=== PATIENT | male | born 1965 | race African-American/Black ===

== ENCOUNTER 2018-06-06 09:23 | Emergency (ER) | payer BC ==
--- NOTE | 2018-06-06 10:16 | EDPHYS ---
Physician Documentation [facility] Name: Shahab Avila Age: 52 yrs Sex: Male : 1965 Arrival Date: 06/06/2018 Time: 09:25 Bed 18 Private MD: None, None ED Physician Evelio Au HPI: 06/06 10:29 This 52 yrs old Black Male presents to ER via Ambulatory with complaints of Foot Pain. snw 10:29 The patient presents with pain, that is acute. The complaints affect the right foot and snw right first toe and ball of right foot and right lateral malleolus. Context: The problem was sustained at home, resulted from accidentally kicked bedframe . Onset: The symptoms/episode began/occurred last week. Treatment prior to arrival includes: tylenol. Severity of symptoms: At their worst the symptoms were mild, moderate. It is unknown whether or not the patient has had similar symptoms in the past. The patient has not recently seen a physician. Historical: - Allergies: 09:49 No Known Allergies; ss - PMHx: 09:49 Hypertension; Gout; ss - PSHx: 09:49 None; ss - Immunization history:: Adult Immunizations up to date. - Social history:: Smoking status: Patient/guardian denies using tobacco. - Ebola Screening: : Patient denies exposure to infectious person Patient denies travel to an Ebola-affected area in the 21 days before illness onset. ROS: 10:27 Constitutional: Negative for fever, chills, and weight loss, Eyes: Negative for injury, snw pain, redness, and discharge, ENT: Negative for injury, pain, and discharge, Neck: Negative for injury, pain, and swelling, Cardiovascular: Negative for chest pain, palpitations, and edema, Respiratory: Negative for shortness of breath, cough, wheezing, and pleuritic chest pain, Abdomen/GI: Negative for abdominal pain, nausea, vomiting, diarrhea, and constipation, Back: Negative for injury and pain, : Negative for injury, bleeding, discharge, and swelling, Skin: Negative for injury, rash, and discoloration, Neuro: Negative for headache, weakness, numbness, tingling, and seizure. 10:27 MS/extremity: Positive for injury or acute deformity, swelling, tenderness, of the right first toe and ball of right foot and right lateral malleolus. Exam: 10:27 Constitutional: This is a well developed, well nourished patient who is awake, alert, snw and in no acute distress. Head/Face: Normocephalic, atraumatic. Eyes: Pupils equal round and reactive to light, extra-ocular motions intact. Lids and lashes normal. Conjunctiva and sclera are non-icteric and not injected. Cornea within normal limits. Periorbital areas with no swelling, redness, or edema. ENT: Nares patent. No nasal discharge, no septal abnormalities noted. Tympanic membranes are normal and external auditory canals are clear. Oropharynx with no redness, swelling, or masses, exudates, or evidence of obstruction, uvula midline. Mucous membranes moist. Neck: Trachea midline, no thyromegaly or masses palpated, and no cervical lymphadenopathy. Supple, full range of motion without nuchal rigidity, or vertebral point tenderness. No Meningismus. Chest/axilla: Normal chest wall appearance and motion. Nontender with no deformity. No lesions are appreciated. Cardiovascular: Regular rate and rhythm with a normal S1 and S2. No gallops, murmurs, or rubs. Normal PMI, no JVD. No pulse deficits. Respiratory: Lungs have equal breath sounds bilaterally, clear to auscultation and percussion. No rales, rhonchi or wheezes noted. No increased work of breathing, no retractions or nasal flaring. Abdomen/GI: Soft, non-tender, with normal bowel sounds. No distension or tympany. No guarding or rebound. No evidence of tenderness throughout. Back: No spinal tenderness. No costovertebral tenderness. Full range of motion. Skin: Warm, dry with normal turgor. Normal color with no rashes, no lesions, and no evidence of cellulitis. Neuro: Awake and alert, GCS 15, oriented to person, place, time, and situation. Cranial nerves II-XII grossly intact. Motor strength 5/5 in all extremities. Sensory grossly intact. Cerebellar exam normal. Normal gait. Psych: Awake, alert, with orientation to person, place and time. Behavior, mood, and affect are within normal limits. 10:27 Musculoskeletal/extremity: Extremities: grossly normal except: noted in the right lateral malleolus, ball of right foot and right first toe: Circulation is intact in all extremities. Sensation intact. Compartment Syndrome exam of affected extremity: is normal. DVT Exam: No signs of deep vein thrombosis. Vital Signs: 09:45 BP 176 / 107; Pulse 66; Resp 15; Temp 99.3(O); Pulse Ox 97% on R/A; Weight 119.29 kg; ss Height 6 ft. 0 in. (182.88 cm); Pain 8/10; 09:45 Body Mass Index 35.67 (119.29 kg, 182.88 cm) ss MDM: 09:44 Patient medically screened. snw 10:28 Data reviewed: vital signs, nurses notes. Data interpreted: Pulse oximetry: on room air snw is 97 %. Interpretation: normal. Test interpretation: by ED physician or midlevel provider: plain radiologic studies, right foot negative for acute fx, none. Counseling: I had a detailed discussion with the patient and/or guardian regarding: the historical points, exam findings, and any diagnostic results supporting the discharge/admit diagnosis, radiology results. Special discussion: Based on the history and exam findings, there is no indication for further emergent testing or inpatient evaluation. I discussed with the patient/guardian the need to see the early breastfeeding care specialist for further evaluation of the symptoms. I discussed with the patient/guardian the need to see the primary care provider for further evaluation of the symptoms. 06/06 09:47 Order name: Foot Right 3 View XRAY snw Administered Medications: No medications were administered Disposition: 15:14 Co-signature as Attending Physician, Evelio Au MD I agree with the assessment and kdr plan of care. Disposition: 06/06/18 10:15 Discharged to Home. Impression: Contusion of right foot. - Condition is Stable. - Discharge Instructions: Foot Contusion. - Prescriptions for Voltaren 1 % Topical gel - apply 2 gram by TOPICAL route 4 times per day; 50 gram. - Medication Reconciliation Form, Thank You Letter, Antibiotic Education, Prescription Opioid Use, Work release form form. - Follow up: Emergency Department; When: As needed; Reason: Worsening of condition. Follow up: Private Physician; When: 2 - 3 days; Reason: Recheck today's complaints, Continuance of care, Re-evaluation by your physician. Signatures: Dispatcher [employer] Evelio Allen MD MD [facility] Kaitlin Freeman, COBY-C HUSKER OPERATOR-Nildaw Duane Luo, HUMAN RESOURCES MANAGER HUMAN RESOURCES MANAGER em Naye Garcia, RN RN ss Corrections: (The following items were deleted from the chart) 10:31 10:15 06/06/2018 10:15 Discharged to Home. Impression: Contusion of right foot. em Condition is Stable. Forms are Medication Reconciliation Form, Thank You Letter, Antibiotic Education, Prescription Opioid Use. Follow up: Emergency Department; When: As needed; Reason: Worsening of condition. Follow up: Private Physician; When: 2 - 3 days; Reason: Recheck today's complaints, Continuance of care, Re-evaluation by your physician. snw
--- NOTE | 2018-06-06 10:16 | ER ---
Nurse's Notes [facility] Name: Shahab Avila Age: 52 yrs Sex: Male : 1965 Arrival Date: 06/06/2018 Time: 09:25 Bed 18 Private MD: None, None Diagnosis: Contusion of right foot Presentation: 06/06 09:47 Presenting complaint: Patient states: pain to R 2nd and 3rd toes after kicking a bed ss frame 1 week ago. Transition of care: patient was not received from another setting of care. Onset of symptoms was May 30, 2018. Risk Assessment: Do you want to hurt yourself or someone else? Patient reports no desire to harm self or others. Initial Sepsis Screen: Does the patient meet any 2 criteria? No. Patient's initial sepsis screen is negative. Does the patient have a suspected source of infection? No. Patient's initial sepsis screen is negative. Care prior to arrival: None. 09:47 Method Of Arrival: Ambulatory ss 09:47 Acuity: RAYO 4 ss Historical: - Allergies: 09:49 No Known Allergies; ss - PMHx: 09:49 Hypertension; Gout; ss - PSHx: 09:49 None; ss - Immunization history:: Adult Immunizations up to date. - Social history:: Smoking status: Patient/guardian denies using tobacco. - Ebola Screening: : Patient denies exposure to infectious person Patient denies travel to an Ebola-affected area in the 21 days before illness onset. Screenin:00 Abuse screen: Denies threats or abuse. Nutritional screening: No deficits noted. em Tuberculosis screening: No symptoms or risk factors identified. Fall Risk None identified. Assessment: 09:47 General: Appears in no apparent distress. comfortable, Behavior is calm, cooperative, ss Denies fever, feeling ill, fatigue, chills. Pain: Complains of pain in right second toe and right third toe Pain currently is 8 out of 10 on a pain scale. Quality of pain is described as tender, throbbing, Pain began 1 week ago Is continuous. Neuro: Level of Consciousness is awake, alert, obeys commands, Oriented to person, place, time, situation. Cardiovascular: Capillary refill < 3 seconds is brisk in bilateral fingers toes. Respiratory: Airway is patent Respiratory effort is even, unlabored, Respiratory pattern is regular, symmetrical. GI: Patient currently denies diarrhea, nausea, vomiting. Derm: Skin is intact, is healthy with good turgor, Skin is dry, Skin is pink, warm \T\ dry. normal. Musculoskeletal: Circulation, motion, and sensation intact. Range of motion: intact in all extremities, Swelling absent. Vital Signs: 09:45 BP 176 / 107; Pulse 66; Resp 15; Temp 99.3(O); Pulse Ox 97% on R/A; Weight 119.29 kg; ss Height 6 ft. 0 in. (182.88 cm); Pain 8/10; 09:45 Body Mass Index 35.67 (119.29 kg, 182.88 cm) ED Course: 09:25 Patient arrived in ED. mr 09:25 None, None is Private Physician. mr 09:44 Kaitlin Freeman F[facility]C [facility]. snw 09:44 Evelio Au MD is Attending Physician. snw 09:45 Arm band placed on right wrist. ss 09:48 Triage completed. ss 09:50 Duane Luo LVN is Primary Nurse. em 10:00 X-ray completed. Portable x-ray completed in exam room. Patient tolerated procedure sg4 well. 10:00 Patient has correct armband on for positive identification. Bed in low position. Call em light in reach. 10:00 No provider procedures requiring assistance completed. Patient did not have IV access em during this emergency room visit. 10:01 Foot Right 3 View XRAY In Process Unspecified. EDMS Administered Medications: No medications were administered Outcome: 10:00 Discharged to home ambulatory. em 10:00 Condition: good 10:00 Discharge instructions given to patient, Instructed on discharge instructions, follow up and referral plans. medication usage, Demonstrated understanding of instructions, follow-up care, medications, Prescriptions given X 1. 10:15 Discharge ordered by . snw 10:31 Patient left the ED. em Signatures: Dispatcher [employer] EDMS Kaitlin Freeman FNP-C FNP-Eli Lofton mr Duane Luo LVN LVN em Naye Garcia RN RN Elenita Zuniga sg4
[2018-06-06 10:35] VITALS: BP 176/107; TEMP 99.3; O2SAT 97
--- NOTE | 2018-06-06 10:43 | RAD REPORT ---
EXAM DESCRIPTION: RAD - Foot Right 3 View - 06/06/2018 10:01 am CLINICAL HISTORY: Pain to the second and third toes following blunt force trauma COMPARISON: None. FINDINGS: Nondisplaced, nonangulated fractures are suspected in the distal phalanx of the second and third toes. Proximal and middle phalanges are intact. The first, fourth and fifth toes are without a cute finding. No midfoot or metatarsal acute finding. Patient has early or small plantar and Achilles spurs. No air or foreign body in the soft tissues. IMPRESSION: Fracture without displacement or angulation involves the second and third distal phalang es.
== END 2018-06-06 10:31 | disposition home or self-care (01) ==
LOC: ER 09:23
DX: S90.31XA Contusion of right foot, initial encounter (principal); W22.8XXA Striking against or struck by other objects, initial encounter; Y93.9 Activity, unspecified; Y92.9 Unspecified place or not applicable
CPT/HCPCS: 99283